=== PATIENT | female | born 1950 | race Caucasian/White ===

== ENCOUNTER 2017-11-02 14:23 | Outpatient (CLI) | payer MEDICARE, OTHER | END 2017-11-02 14:24 | disposition home or self-care (01) | LOC: BICMAMMO 14:23 | PROVIDERS: ATTEND Internal Medicine | DX: N64.4 Mastodynia (principal); Z80.3 Family history of malignant neoplasm of breast | CPT/HCPCS: 76642 ×2; 77066; G0279 ==

== ENCOUNTER 2018-04-12 06:38 | Outpatient (CLI) | payer MEDICARE, OTHER ==
--- NOTE | 2018-04-12 11:07 | CT ---
ABDOMEN AND PELVIS CT SCAN WITH IV CONTRAST: HISTORY: A 67-year-old female with a history of abdominal pain, R10.9, and constipation. FINDINGS: There are bilateral abnormal pulmonary and parenchymal changes with some linear stranding and some br onchiectasis, most marked in the lingula, but also in the left lower lobe, and less marked changes in the right lower lobe and right middle lobe. Minimal nonspecific parenchymal changes in the upper po rtion of the right lower lobe, only partially seen on this study. The common bile duct is borderline at 0.7 cm. A small amount of intraperitoneal fluid adjacent to the right lobe of the liver. The ga llbladder, pancreas, spleen, and adrenal glands are unremarkable. No renal calculus or acute obst ruction. Normal appearing appendix. There is a large, approximately 6.6 x 8.1 cm in diameter probab le cyst or fluid collection, posterior to the uterus, in the presacral space, somewhat displacing the rectum to the left. Attenuation coefficients are higher than simple acidic fluid and could potentia lly represent complicated fluid, including hemorrhagic fluid or proteinaceous fluid. This could cert ainly represent some type of a right adnexal or right ovarian cystic mass. There does appear to be a t least one small punctate calcification within the wall of this abnormal process. IMPRESSION: 1. A 6.6 x 8.1 cm in diameter, abnormal cystic mass or fluid collection, posterior to the uterus, in the presacral region, displacing the rectum to the left, with attenuation coefficients, that would s uggest complicated fluid, such as hemorrhagic fluid or proteinaceous fluid. Further evaluation with a follow-up pelvic ultrasound should be considered for further assessment. No CT evidence for acute appendicitis. No renal calculus or acute genitourinary obstruction. 2. Fairly extensive bilateral pulmonary parenchymal changes with bilateral bronchiectasis, involving the lingula, left lower lobe, right lower lobe, and right middle lobe. Compared to a prior 04/11/[address] scan, some of these changes appear stable. The bronchiectasis in the right and left lowe r lobes appear to be somewhat more prominent, and some of the alveolar nodular parenchymal changes se en on the older study are no longer evident. POS: [facility]
[2018-04-12] MEDS ORDERED: Iopamidol 370 76% 100 ML VIAL ONE (13:59)
== END 2018-04-12 06:39 | disposition home or self-care (01) ==
LOC: CT 06:38
PROVIDERS: ATTEND Internal Medicine
DX: R10.9 Unspecified abdominal pain (principal); R19.00 Intra-abdominal and pelvic swelling, mass and lump, unspecified site
CPT/HCPCS: 74177; 81001; 87086

== ENCOUNTER 2019-07-10 11:32 | Outpatient (CLI) | payer MEDICARE, OTHER ==
--- NOTE | 2019-07-10 12:19 | RAD ---
EXAM: Chest Two Views 07/10/2019 12:15 PM HISTORY: Cough and fever COMPARISON: Chest radiograph dated March 07, 2012 FINDINGS: Heart: Normal in size and contour. Pulmonary vessels: Normal. Costophrenic angles: Clear. Lungs: There are new areas of patchy airspace opacity within both lower lobe suspicious for pneumonia . There are areas of gerardo consolidation in the region of the right middle lobe. This is superimposed on severe COPD change. Foci of reticular nodularity are seen involving both upper lobes which are suspicious for component of a bronchiolitis. Pneumothorax: None. Osseous structures:Intact. Stable thoracolumbar scoliosis. Additional findings: None. IMPRESSION: Multifocal pneumonia superimposed on severe COPD change. Recommend continued radiographic follow-up u ntil clearance.
== END 2019-07-10 11:33 | disposition home or self-care (01) ==
LOC: BICRAD 11:32
PROVIDERS: ATTEND Physician Assistant
DX: R05 Cough (principal); R50.9 Fever, unspecified; J18.9 Pneumonia, unspecified organism; J44.9 Chronic obstructive pulmonary disease, unspecified
CPT/HCPCS: 36415; 71046; 80048; 85025

== ENCOUNTER 2023-05-04 09:19 | Outpatient (CLI) | payer MEDICARE, OTHER | END 2023-05-04 09:20 | disposition home or self-care (01) | LOC: BICRAD 09:19 | PROVIDERS: ATTEND Family Medicine | DX: R05.1 Acute cough (principal) | CPT/HCPCS: 71046 ==

== ENCOUNTER 2024-06-14 08:42 | Outpatient (CLI) | payer MEDICARE, OTHER | END 2024-06-14 08:43 | disposition home or self-care (01) | LOC: RAD 08:42 | PROVIDERS: ATTEND Internal Medicine Critical Care Medicine | DX: R06.00 Dyspnea, unspecified (principal) | CPT/HCPCS: 71046 ==